=== PATIENT | female | born 1990 | race Caucasian/White ===

== ENCOUNTER 2017-12-14 00:17 | Observation (INO) | payer MEDICAID, OTHER ==
[~2017-12-14] VITALS: Ht 162.6 cm; Wt 68.0 kg
== END 2017-12-14 01:20 | disposition home or self-care (01) ==
LOC: L&D 00:17
PROVIDERS: ADMIT Obstetrics & Gynecology; ATTEND Obstetrics & Gynecology
DX: O26.893 Other specified pregnancy related conditions, third trimester (principal); R10.30 Lower abdominal pain, unspecified; Z3A.36 36 weeks gestation of pregnancy
CPT/HCPCS: 99281; G0378

== ENCOUNTER 2022-12-21 18:55 | Inpatient (IN) | payer MEDICAID, OTHER ==
[~2022-12-21] VITALS: Ht 162.6 cm; Wt 77.1 kg
[2022-12-21 23:00] LABS: BASOPHILS % 0.4 % (0.0-2.0); EOSINOPHILS % 3.2 % (0.0-5.0); HEMATOCRIT. 39.2 % (36.0-48.0); HEMOGLOBIN. 13.3 g/dL (12.0-16.0); LYMPHOCYTES % 37.1 % (20.0-50.0); MEAN CORPUSCULAR HEMOGLOBIN 31.7 pg (28.0-32.0); MEAN CORPUSCULAR VOLUME 93.7 fL (81.0-99.0); MONOCYTES % 9.5 % (2.0-8.0); NEUTROPHILS % 49.8 % (40.0-76.0); PLATELET 172 x1000/uL (130-400); RED BLOOD CELL COUNT 4.18 mill/uL (4.2-5.4); RED CELL DISTRIBUTION WIDTH 13.4 % (11.6-14.6)
[2022-12-21 23:06] LABS: CHLORIDE 106 mEq/L (98-107)
[2022-12-22 00:13] LABS: HCG SCREEN NEGATIVE
[2022-12-22] MEDS ORDERED: IBUPROFEN 400MG TABLET PO ONE (00:15)
[2022-12-22] MEDS ORDERED: ASPIRIN 81MG TABLET PO ONE (00:30)
[2022-12-22 00:46] LABS: PARTIAL THROMBOPLASTIN TIME 26.5 sec (23.4-31.0); PROTHROMBIN TIME 10.6 sec (9.6-11.0)
[2022-12-22] MEDS ORDERED: NITROGLYCERIN 0.4MG TABLET SL SL PRN (01:00)
[2022-12-22] MEDS ORDERED: MORPHINE SULFATE 4 MG/ML CPJ (NOT FOR IM USE) IV STA (01:03)
[2022-12-22] MEDS ORDERED: ONDANSETRON HCL 4MG/2ML INJ IV STA (01:03)
[2022-12-22] MEDS ORDERED: ENOXAPARIN 80MG/0.8ML SYR SUBCUT ONE (02:00)
[2022-12-22] MEDS ORDERED: ACETAMINOPHEN 325MG TABLET PO PRN (09:00)
[2022-12-22] MEDS ORDERED: ONDANSETRON HCL 4MG/2ML INJ IV PRN (09:00)
[2022-12-22] MEDS ORDERED: IOHEXOL-300 100 ML BOTTLE ONE (10:39)
[2022-12-22] MEDS: KETOROLAC 30MG/ML VIAL IV PRN ×2 (10:59→22:39)
[2022-12-22 16:00] VITALS: BP 105/64
[2022-12-22] MEDS ORDERED: SERT-112 PO (16:23)
[2022-12-22 20:00] VITALS: BP 97/56
[2022-12-23 00:13] VITALS: BP 107/67
[2022-12-23 04:00] VITALS: BP 93/49
[2022-12-23 06:21] LABS: CLARITY URINE CLEAR (CLEAR); COLOR URINE DARK YELLOW (YELLOW); KETONES URINE TRACE (NEGATIVE); LEUKOCYTE ESTERASE URINE NEGATIVE (NEGATIVE); NITRITE URINE NEGATIVE (NEGATIVE); OCCULT BLOOD URINE NEGATIVE (NEGATIVE); PROTEIN URINE TRACE (NEGATIVE); SPECIFIC GRAVITY URINE 1.083 (1.005-1.030); UROBILINOGEN URINE 0.2 E.U./dL (0.2-1.0)
[2022-12-23 06:34] LABS: *AMPHETAMINES SCREEN URINE NEGATIVE (NEGATIVE); *BARBITURATES SCREEN URINE NEGATIVE (NEGATIVE); *BENZODIAZEPINES SCREEN URINE NEGATIVE (NEGATIVE); *COCAINE SCREEN URINE NEGATIVE (NEGATIVE); CANNABINOID URINE SCREEN NEGATIVE (NEGATIVE); METHADONE URINE SCREEN NEGATIVE (NEGATIVE); PHENCYCLIDINE URINE SCREEN NEGATIVE (NEGATIVE)
[2022-12-23 06:38] LABS: OPIATES URINE SCREEN PRESUMTIVE POSITIVE (NEGATIVE)
[2022-12-23 08:00] VITALS: BP 100/61
[2022-12-23] MEDS: KETOROLAC 30MG/ML VIAL IV PRN (09:10)
[2022-12-23 12:00] VITALS: BP 102/53
[2022-12-23 16:00] VITALS: BP 105/62
[2022-12-23] MEDS ORDERED: IPRATROPIUM/ALBUTEROL 0.5-3(2.5)MG/3ML NEB HHN PRN (16:15)
[2022-12-23 16:22] VITALS: BP 105/62
[2022-12-23] MEDS ORDERED: IPRATROPIUM BROMIDE (0.02%) 0.5MG/2.5ML NEB HHN PRN (16:30)
[2022-12-23] MEDS ORDERED: ALBUTEROL (0.083%) 2.5MG/3ML NEB HHN PRN (16:30)
== END 2022-12-23 17:29 | disposition home or self-care (01) | DRG 203 ==
LOC: ER 19:13 → EDBEDREQ 12-22 02:09 → EDBEDREQTM 12-22 02:09 → 7WST 12-22 02:44 → MICUSO 12-22 03:41 → 3WST 12-22 15:34
PROVIDERS: ADMIT Internal Medicine; ATTEND Internal Medicine
DX: R07.9 Chest pain, unspecified (principal); I69.392 Facial weakness following cerebral infarction; J45.909 Unspecified asthma, uncomplicated; Z98.891 History of uterine scar from previous surgery; I69.398 Other sequelae of cerebral infarction
CPT/HCPCS: 36415; 71045; 71275; 80053; 80305; 81003; 83880; 84484; 84703; 85025; 85379; 93005; 93306; 93970; 99285; J1650; J1885; J2270; J2405; Q9967